=== PATIENT | female | born 1975 | race African-American/Black ===

== ENCOUNTER → 2018-02-22 | Outpatient (CLI) | payer OTHER ==
--- NOTE | 2018-03-04 15:57 | REPMRS ---
Patient History The patient states she has not had a clinical breast exam in over a year. No known family history of cancer. Digital Mammo Screening Bilat: February 22, 2018 - Exam #: [id number] Bilateral CC and MLO view(s) were taken. Technologist: Josefa Doyle, Technologist Prior study comparison: February 25, 2017, bilateral digital mammo screening bilat, performed at [place]. FINDINGS: The breast tissue is heterogeneously dense. This may lower the sensitivity of mammography. There has been no change in the appearance of the mammogram from the prior studies. There is a moderate amount of residual fibroglandular tissue which is fairly symmetric. There is no interval development of dominant mass, areas of architectural distortion, or clustered microcalcification typical of malignancy. Assessment: BI-RADS/ACR category 1 mammogram. Negative. Recommendation Routine screening mammogram in 1 year (for women over age 40). This mammogram was interpreted with the aid of an FDA-approved computer-aided dectection system. Electronically Signed By: Charlie Mcleod MD 03/04/18 [id number]
== END ==
LOC: M RAD 10:18
DX: Z12.31 Encounter for screening mammogram for malignant neoplasm of breast (principal)